=== PATIENT | female | born 1960 | race Caucasian/White ===

== ENCOUNTER 2016-07-26 08:33 | Observation (INO) | payer OTHER ==
[~2016-07-26] VITALS: Ht 167.6 cm; Wt 112.8 kg
[~2016-07-26 08:33] MED LIST: AMLODIPINE-BEN1 EACH PO; ATARAX,VISTARIL25 MG PO; ATORVASTATIN CA40 MG PO; AZOR 10/20 M1 TABLET PO; BACTRIM,SEPT1 TABLET PO; BENTYL20 MG PO; BUPROPION XL300 MG PO; CELEBREX200 MG PO; CLEOCIN300 MG PO; Colace PO; FLAGYL500 MG PO; FLOMAX0.4 MG PO; HYDROCHLOROTHIA25 MG PO; KEFLEX500 MG PO; METOPROLOL TART25 MG PO; Miralax, Glycolax PO; NORCO 5/3251 TABLET PO; PANTOPRAZOLE SO40 MG PO; PRAVASTATIN SOD40 MG PO; PREDNISONE20 MG PO; PRILOSEC40 MG PO; ROPINIROLE HC0.25 MG PO; ZOFRAN ODT8 MG PO; ZOFRAN8 MG PO
[2016-07-26 09:28] LABS: EOSINOPHIL (%) 3.2 % (0-5); EOSINOPHIL COUNT 0.2 K/uL (0-0.3); HEMATOCRIT 37.4 % (36.0-46.0); IMMATURE GRANULOCYTE (%) 0.2 % (0.0-0.7); IMMATURE GRANULOCYTE COUNT 0.1 K/uL; MCHC 34.2 G/DL (30.0-36.0); MCV 87.6 FL (83-99); MEAN PLAT.VOLUME 11.1 uM^3 (9.5-12.4); MONOCYTE (%) 7.6 % (3-12); MONOCYTE COUNT 0.4 K/uL (0-0.8); NEUTROPHIL (%) 49.2 % (45-76); NEUTROPHIL COUNT 2.5 K/uL (1.8-6.4); RBC DIS.WIDTH-CV 13.4 % (11.8-14.6); RBC DIS.WIDTH-SD 41.3 % (39-53); RED BLOOD COUNT 4.27 M/uL (3.80-5.20)
[2016-07-26 09:29] LABS: PLATELET COUNT 207 K/uL (156-360)
[2016-07-26 09:36] LABS: TROP-I INTERPRETATION NEGATIVE; TROPONIN-I < 0.01 ng/mL (0.0-0.30)
[2016-07-26 09:54] LABS: CHLORIDE 109 mEq/L (99-109); SODIUM 140 mEq/L (136-147)
[2016-07-26 09:56] LABS: GLUCOSE 109 mg/dL (70-99)
[2016-07-26 09:57] LABS: ANION GAP 9 MEQ/L (2-14)
[2016-07-26 09:58] LABS: TOTAL BILIRUBIN 0.7 mg/dL (0.0-1.0)
[2016-07-26 10:00] LABS: ALKALINE PHOSPHATASE 77 IU/L (3-129); GFR ESTIMATE (CALCULATED) > 59 mL/min/
[2016-07-26 10:01] LABS: UREA NITROGEN (BUN) 22 mg/dL (9-23)
[2016-07-26] MEDS ORDERED: LOTREL 5/401 CAPSULE PO (12:10)
[2016-07-26] MEDS ORDERED: LOPRESSOR50 MG PO (12:11)
[2016-07-26] MEDS ORDERED: CYMBALTA30 MG PO (12:15)
[2016-07-26] MEDS ORDERED: VENTOLIN HFA18 GM IH (12:16)
[2016-07-26 12:42] LABS: TROP-I INTERPRETATION NEGATIVE; TROPONIN-I < 0.01 ng/mL (0.0-0.30)
[2016-07-26 17:00] VITALS: BP 148/75
[2016-07-26 18:19] LABS: TROP-I INTERPRETATION NEGATIVE; TROPONIN-I < 0.01 ng/mL (0.0-0.30)
[2016-07-26 20:37] VITALS: BP 128/62
[2016-07-26 23:12] VITALS: BP 130/75
[2016-07-26 23:49] LABS: TROP-I INTERPRETATION NEGATIVE; TROPONIN-I < 0.01 ng/mL (0.0-0.30)
[2016-07-27 03:08] VITALS: BP 142/77
[2016-07-27 08:17] VITALS: BP 151/68
[2016-07-27 12:16] VITALS: BP 120/76
== END 2016-07-27 13:39 | disposition home or self-care (01) ==
LOC: EME 08:33 → EDOF 11:09 → 5WEST 11:09
PROVIDERS: Emergency Medicine; Hospitalist
DX: R06.02 Shortness of breath (principal); R22.0 Localized swelling, mass and lump, head; R07.89 Other chest pain; T44.6X5A Adverse effect of alpha-adrenoreceptor antagonists, initial encounter; N13.2 Hydronephrosis with renal and ureteral calculous obstruction; I10 Essential (primary) hypertension; E78.5 Hyperlipidemia, unspecified; K21.9 Gastro-esophageal reflux disease without esophagitis; Z87.19 Personal history of other diseases of the digestive system; Z87.891 Personal history of nicotine dependence; Z82.49 Family history of ischemic heart disease and other diseases of the circulatory system; Z82.3 Family history of stroke
CPT/HCPCS: 71020; 80053; 84484; 85025; 93005; 99281; 99285; G0378; J1200; J2930; J7030; S0028

== ENCOUNTER 2017-02-15 09:07 | Day surgery (SDC) | payer OTHER ==
[~2017-02-15] VITALS: Ht 165.1 cm; Wt 106.5 kg
[~2017-02-15 09:07] MED LIST changes: +ASPIRIN81 M2 PO; +CYMBALTA30 MG PO; +HYDROCODON-ACE1 EAC7 PO; +KENALOG,ARISTOC80 GM TP; +LIPITOR40 MG PO; +LOPRESSOR50 MG PO; +LOTREL 5/401 CAPSULE PO; +MIRALAX17 GM PO; +REQUIP0.25 MG PO; +TOPROL XL100 MG PO; +VENTOLIN HFA18 GM IH; +WELLBUTRIN XL300 MG PO; +ZANAFLEX2 M1 PO; +ZYRTEC10 M2 PO
== END 2017-02-15 10:35 | disposition home or self-care (01) ==
LOC: PAIN 09:07 → SDC 09:45 → PAIN 09:45
DX: M47.26 Other spondylosis with radiculopathy, lumbar region (principal); M51.16 Intervertebral disc disorders with radiculopathy, lumbar region; M47.812 Spondylosis without myelopathy or radiculopathy, cervical region; M47.814 Spondylosis without myelopathy or radiculopathy, thoracic region; I10 Essential (primary) hypertension; F41.8 Other specified anxiety disorders; I25.10 Atherosclerotic heart disease of native coronary artery without angina pectoris; E78.5 Hyperlipidemia, unspecified; K21.9 Gastro-esophageal reflux disease without esophagitis; E66.01 Morbid (severe) obesity due to excess calories; Z68.39 Body mass index [BMI] 39.0-39.9, adult; Z87.891 Personal history of nicotine dependence; Z79.891 Long term (current) use of opiate analgesic
CPT/HCPCS: J1030; J2250; J3010; S0020

== ENCOUNTER 2017-02-22 09:05 | Day surgery (SDC) | payer OTHER ==
[~2017-02-22] VITALS: Ht 165.1 cm; Wt 106.5 kg
== END 2017-02-22 10:32 | disposition home or self-care (01) ==
LOC: PAIN 09:05 → SDC 09:45 → PAIN 10:32
DX: M47.26 Other spondylosis with radiculopathy, lumbar region (principal); M51.16 Intervertebral disc disorders with radiculopathy, lumbar region; M47.814 Spondylosis without myelopathy or radiculopathy, thoracic region; I10 Essential (primary) hypertension; I25.10 Atherosclerotic heart disease of native coronary artery without angina pectoris; E78.5 Hyperlipidemia, unspecified; J44.9 Chronic obstructive pulmonary disease, unspecified; Z87.891 Personal history of nicotine dependence; E66.9 Obesity, unspecified; Z68.39 Body mass index [BMI] 39.0-39.9, adult; Z79.891 Long term (current) use of opiate analgesic; Z79.82 Long term (current) use of aspirin
CPT/HCPCS: J1030; J2250; J3010; S0020

== ENCOUNTER 2017-06-02 10:42 | Day surgery (SDC) | payer OTHER ==
[~2017-06-02] VITALS: Ht 165.1 cm; Wt 106.1 kg
== END 2017-06-02 12:33 | disposition home or self-care (01) ==
LOC: PAIN 10:42 → SDC 11:30 → PAIN 11:30
DX: M47.816 Spondylosis without myelopathy or radiculopathy, lumbar region (principal); M54.5 Low back pain; G89.29 Other chronic pain; M51.36 Other intervertebral disc degeneration, lumbar region; E66.9 Obesity, unspecified; Z68.38 Body mass index [BMI] 38.0-38.9, adult; I10 Essential (primary) hypertension; I25.10 Atherosclerotic heart disease of native coronary artery without angina pectoris; M47.812 Spondylosis without myelopathy or radiculopathy, cervical region; E78.5 Hyperlipidemia, unspecified; K21.9 Gastro-esophageal reflux disease without esophagitis; G47.33 Obstructive sleep apnea (adult) (pediatric); F41.8 Other specified anxiety disorders; Z87.891 Personal history of nicotine dependence; Z79.82 Long term (current) use of aspirin
CPT/HCPCS: J1030; J2250; J3010; S0020

== ENCOUNTER 2017-06-09 10:39 | Day surgery (SDC) | payer OTHER ==
[~2017-06-09] VITALS: Ht 165.1 cm; Wt 106.1 kg
== END 2017-06-09 12:42 | disposition home or self-care (01) ==
LOC: PAIN 10:39 → SDC 11:30 → PAIN 11:30
DX: M47.26 Other spondylosis with radiculopathy, lumbar region (principal); M51.16 Intervertebral disc disorders with radiculopathy, lumbar region; M54.5 Low back pain; G89.29 Other chronic pain; M47.814 Spondylosis without myelopathy or radiculopathy, thoracic region; M47.812 Spondylosis without myelopathy or radiculopathy, cervical region; I10 Essential (primary) hypertension; K21.9 Gastro-esophageal reflux disease without esophagitis; I25.10 Atherosclerotic heart disease of native coronary artery without angina pectoris; E78.5 Hyperlipidemia, unspecified; Z87.891 Personal history of nicotine dependence; Z79.82 Long term (current) use of aspirin; Z79.891 Long term (current) use of opiate analgesic; E66.9 Obesity, unspecified; Z68.38 Body mass index [BMI] 38.0-38.9, adult
CPT/HCPCS: J1030; J2250; J3010; S0020

== ENCOUNTER → 2017-06-23 | Outpatient (CLI) | payer OTHER | END | disposition home or self-care (01) | LOC: CDC 15:48 | DX: Z01.810 Encounter for preprocedural cardiovascular examination (principal) | CPT/HCPCS: 93000 ==

== ENCOUNTER 2017-09-15 05:19 | Emergency (ER) | payer OTHER ==
[~2017-09-15] VITALS: Ht 165.1 cm; Wt 113.1 kg
[2017-09-15 06:20] LABS: HEMATOCRIT 38.7 % (36.0-46.0); HEMOGLOBIN 13.1 G/DL (11.9-15.5); MCHC 33.9 G/DL (30.0-36.0); MCV 88.6 FL (83-99); PLATELET COUNT 199 K/uL (156-360); RBC DIS.WIDTH-CV 12.6 % (11.8-14.6); RBC DIS.WIDTH-SD 40.7 % (39-53); RED BLOOD COUNT 4.37 M/uL (3.80-5.20); WHITE BLOOD COUNT 6.4 K/uL (4.1-10.2)
[2017-09-15 06:28] LABS: CHLORIDE 104 mEq/L (99-109); POTASSIUM 4.2 mEq/L (3.7-5.4); SODIUM 138 mEq/L (136-147)
[2017-09-15 06:30] LABS: GLUCOSE 103 mg/dL (70-99)
[2017-09-15 06:34] LABS: CREATININE 0.7 mg/dL (0.6-1.3); GFR ESTIMATE (CALCULATED) > 59 mL/min/
[2017-09-15 06:35] LABS: UREA NITROGEN (BUN) 12 mg/dL (9-23)
[2017-09-15 06:40] LABS: TROP-I INTERPRETATION NEGATIVE; TROPONIN-I < 0.01 ng/mL (0.0-0.30)
[2017-09-15] MEDS ORDERED: FLONASE16 G1 BOTH NARES (08:57)
[2017-09-15] MEDS ORDERED: TESSALON PERLE100 MG PO (08:57)
[2017-09-15] MEDS ORDERED: CHERATUSSIN AC473 ML PO (08:57)
[2017-09-15] MEDS ORDERED: VENTOLIN HFA18 GM IH (08:57)
[2017-09-15] MEDS ORDERED: AUGMENTIN875 MG PO (08:57)
[2017-09-15] MEDS ORDERED: PREDNISONE20 MG PO (08:57)
[2017-09-15 09:30] VITALS: BP 137/90
== END 2017-09-15 09:30 | disposition home or self-care (01) ==
LOC: EME 05:19
DX: J32.9 Chronic sinusitis, unspecified (principal); J40 Bronchitis, not specified as acute or chronic; J44.9 Chronic obstructive pulmonary disease, unspecified; I10 Essential (primary) hypertension; Z79.82 Long term (current) use of aspirin; Z87.891 Personal history of nicotine dependence
CPT/HCPCS: 71046; 80048; 84484; 85027; 93005; 99281; 99283

== ENCOUNTER 2018-01-23 14:01 | Day surgery (SDC) | payer OTHER ==
[~2018-01-23] VITALS: Ht 165.1 cm; Wt 106.6 kg
[~2018-01-23 14:01] MED LIST changes: +AUGMENTIN875 MG PO; +CHERATUSSIN AC473 ML PO; +FLONASE16 G1 BOTH NARES; +NORCO 7.5/321 TABLET PO; +TESSALON PERLE100 MG PO
== END 2018-01-23 15:10 | disposition home or self-care (01) ==
LOC: PAIN 14:01 → SDC 14:30 → PAIN 15:10
DX: M54.16 Radiculopathy, lumbar region (principal); M51.26 Other intervertebral disc displacement, lumbar region; E55.9 Vitamin D deficiency, unspecified; M45.6 Ankylosing spondylitis lumbar region; Z87.891 Personal history of nicotine dependence; E66.9 Obesity, unspecified; Z68.41 Body mass index [BMI] 40.0-44.9, adult; F32.9 Major depressive disorder, single episode, unspecified; F41.9 Anxiety disorder, unspecified; M19.90 Unspecified osteoarthritis, unspecified site; I10 Essential (primary) hypertension; Z88.8 Allergy status to other drugs, medicaments and biological substances
CPT/HCPCS: J1100; J2250

== ENCOUNTER 2018-01-24 05:49 | Emergency (ER) | payer OTHER ==
[~2018-01-24] VITALS: Ht 165.1 cm; Wt 116.5 kg
[2018-01-24 06:46] LABS: HEMOGLOBIN 14.1 G/DL (11.9-15.5); MCH 29.9 PG (29.0-34.0); MCHC 34.4 G/DL (30.0-36.0); MCV 86.9 FL (83-99); PLATELET COUNT 300 K/uL (156-360); RBC DIS.WIDTH-CV 12.8 % (11.8-14.6); RBC DIS.WIDTH-SD 40.6 % (39-53); RED BLOOD COUNT 4.72 M/uL (3.80-5.20); WHITE BLOOD COUNT 11.4 K/uL (4.1-10.2)
[2018-01-24 07:17] LABS: CHLORIDE 105 MEQ/L (99-109); CREATININE 0.6 MG/DL (0.6-1.3); GFR ESTIMATE (CALCULATED) > 59 mL/min/; GLUCOSE 135 mg/dL (70-99); POTASSIUM 3.8 MEQ/L (3.7-5.4); SODIUM 141 MEQ/L (136-147); UREA NITROGEN (BUN) 16 mg/dL (9-23)
[2018-01-24 12:12] VITALS: BP 138/79
== END 2018-01-24 12:17 | disposition home or self-care (01) ==
LOC: EME 05:49
PROVIDERS: Physician Assistant
DX: R51 Headache (principal); I10 Essential (primary) hypertension; J45.909 Unspecified asthma, uncomplicated; K58.9 Irritable bowel syndrome, unspecified; Z87.442 Personal history of urinary calculi; Z87.891 Personal history of nicotine dependence
CPT/HCPCS: 80048; 81003; 85027; 99281; 99285; J0780; J1200; J3010; J7030

== ENCOUNTER 2018-02-20 12:46 | Day surgery (SDC) | payer OTHER ==
[~2018-02-20] VITALS: Ht 165.1 cm; Wt 115.2 kg
[~2018-02-20 12:46] MED LIST changes: +NAPROSYN500 MG PO
== END 2018-02-20 14:37 | disposition home or self-care (01) ==
LOC: PAIN 12:46 → SDC 14:30 → PAIN 14:30
DX: M54.16 Radiculopathy, lumbar region (principal); G89.29 Other chronic pain; M47.816 Spondylosis without myelopathy or radiculopathy, lumbar region; E66.01 Morbid (severe) obesity due to excess calories; Z68.41 Body mass index [BMI] 40.0-44.9, adult; Z87.891 Personal history of nicotine dependence; I10 Essential (primary) hypertension; E78.5 Hyperlipidemia, unspecified; I25.10 Atherosclerotic heart disease of native coronary artery without angina pectoris; F32.9 Major depressive disorder, single episode, unspecified; F41.1 Generalized anxiety disorder; Z79.82 Long term (current) use of aspirin; Z88.8 Allergy status to other drugs, medicaments and biological substances
CPT/HCPCS: J1100; J2250; J3010

== ENCOUNTER 2018-02-25 16:31 | Emergency (ER) | payer OTHER ==
[~2018-02-25] VITALS: Ht 165.1 cm; Wt 114.9 kg
[2018-02-25 17:45] LABS: HEMOGLOBIN 12.8 G/DL (11.9-15.5); MCH 29.2 PG (29.0-34.0); MCHC 33.7 G/DL (30.0-36.0); MCV 86.6 FL (83-99); PLATELET COUNT 256 K/uL (156-360); RBC DIS.WIDTH-CV 13.2 % (11.8-14.6); RBC DIS.WIDTH-SD 41.7 % (39-53); RED BLOOD COUNT 4.39 M/uL (3.80-5.20); WHITE BLOOD COUNT 5.9 K/uL (4.1-10.2)
[2018-02-25 18:07] LABS: ALBUMIN 3.8 G/DL (3.2-4.8); CHLORIDE 104 MEQ/L (99-109); POTASSIUM 4.4 MEQ/L (3.7-5.4); SODIUM 137 MEQ/L (136-147); TOTAL BILIRUBIN 0.4 MG/DL (0.0-1.0)
[2018-02-25 18:12] LABS: ALKALINE PHOSPHATASE 101 IU/L (3-129); ALT (GPT) 14 IU/L (3-49); AST (GOT) 13 IU/L (2-34); CREATININE 0.6 MG/DL (0.6-1.3); GFR ESTIMATE (CALCULATED) > 59 mL/min/; GLUCOSE 100 mg/dL (70-99); LIPASE 32 U/L (1.0-51.0); TOTAL PROTEIN 6.3 G/DL (6.4-8.3); UREA NITROGEN (BUN) 16 mg/dL (9-23)
[2018-02-25 19:56] LABS: APPEARANCE CLEAR ((CLEAR)); BILIRUBIN NEGATIVE; BLOOD NEGATIVE; COLOR YELLOW ((YELLOW)); GLUCOSE (STRIP) NEGATIVE; KETONES NEGATIVE; LEUKOCYTES TRACE; NITRITE NEGATIVE; PROTEIN (STRIP) NEGATIVE; UROBILINOGEN 0.2 MG/DL (0.2-1.0)
[2018-02-25 20:02] LABS: BACTERIA NONE SEEN /HPF; EPITHELIAL CELLS RARE /HPF; MUCUS TRACE /LPF; RED BLOOD CELLS 0-5 /HPF (0-5); UCUL ADDED? NO; WHITE BLOOD CELLS 0-5 /HPF (0-5)
[2018-02-25] MEDS ORDERED: NAPROXEN500 MG PO (20:24)
[2018-02-25 21:06] VITALS: BP 138/68
== END 2018-02-25 21:07 | disposition home or self-care (01) ==
LOC: EME 16:31
PROVIDERS: Physician Assistant
DX: R07.81 Pleurodynia (principal); J45.909 Unspecified asthma, uncomplicated; Z79.82 Long term (current) use of aspirin; Z87.891 Personal history of nicotine dependence; Z87.442 Personal history of urinary calculi; Z88.8 Allergy status to other drugs, medicaments and biological substances
CPT/HCPCS: 71275; 80053; 81003; 83690; 85027; 85379; 99281; 99285; J1885; J2270; J7040